=== PATIENT | female | born 1950 | race Asian ===

== ENCOUNTER 2019-05-10 02:47 | Emergency (ER) | payer BC, OTHER ==
[~2019-05-10] VITALS: Ht 152.4 cm; Wt 59.9 kg
--- NOTE | 2019-05-10 03:15 | NUR ---
Dr. Zhu at bedside for MSE
--- NOTE | 2019-05-10 03:26 | NUR ---
Patient discharged to home in stable conditon. Written and verbal after care instructions given. Patient verbalizes understanding of instructions. pt ambulating
[2019-05-10 03:30] VITALS: BP 138/69
== END 2019-05-10 03:26 | disposition home or self-care (01) ==
LOC: ER 02:49
DX: M72.2 Plantar fascial fibromatosis (principal); K21.9 Gastro-esophageal reflux disease without esophagitis; E78.5 Hyperlipidemia, unspecified
CPT/HCPCS: A4663